=== PATIENT | female | born 1955 | race Caucasian/White ===

== ENCOUNTER → 2017-10-25 | Outpatient (CLI) | payer BC ==
--- NOTE | 2017-10-25 11:56 | MR ---
EXAMINATION TYPE: MR knee LT wo con DATE OF EXAM: 10/25/2017 COMPARISON: Outside radiographs 10/09/2017 HISTORY: 62-year-old female Left knee pain TECHNIQUE: Multiplanar, multisequence imaging of the left knee is performed without IV contrast. FINDINGS: ACL, PCL, MCL, and LCL complex are intact. Some degenerative signal at the junction of the posterior horn and body of the medial meniscus withou t discrete meniscal tear. There is a moderate irregular cartilage loss especially along the weightbe aring aspect of the medial compartment. Mild degenerative subchondral signal changes in the medial ti bial plateau and also along the mid weightbearing aspect of the femoral condyle. There is prominent intrasubstance signal involving the anterior horn of the lateral meniscus near the anterior root. Signal does not clearly extend to either articular surface. Mild diffuse thinning of lateral compartment articular cartilage. Moderate diffuse thinning of patellofemoral compartment articular cartilage with focal irregular cart ilage loss especially along the lateral patellar facet with underlying early subchondral cystic maza e. There is enthesopathic change at the patellar base. Extensor mechanism is intact. Physiological joint fluid. No significant Zhou's cyst. Normal popliteal artery anatomy and muscle bulk. No suspicious bone marrow replacement. IMPRESSION: 1. Degenerative signal involving the anterior horn of the lateral meniscus near the root and addition al degenerative signal at the junction of the posterior horn and body of the medial meniscus. No disc rete meniscal tear at this time. 2. Moderate medial compartmental osteoarthrosis characterized by irregular cartilage thinning especia lly along the weightbearing aspect. 3. Mild patellofemoral compartmental osteoarthrosis. 4. No cruciate/collateral ligament tear.
== END | disposition home or self-care (01) ==
LOC: RADMRIMAIN 07:04
PROVIDERS: ATTEND Orthopaedic Surgery
DX: M17.12 Unilateral primary osteoarthritis, left knee (principal)

== ENCOUNTER → 2017-10-29 | Outpatient (CLI) | payer BC ==
--- NOTE | 2017-10-30 11:47 | MM ---
Reason for exam: screening (asymptomatic). Last mammogram was performed 1 year and 9 months ago. History: Patient is postmenopausal. Benign right mammotome panel of the right breast, March 01, 2007. Benign stereotactic core biopsy of the right breast, September 26, 2002. Took estrogen for 4 years 4 months beginning at age 48. Physical Findings: A clinical breast exam by your physician is recommended on an annual basis and results should be correlated with mammographic findings. MG 3D Screening Mammo W/Cad Bilateral CC and MLO view(s) were taken. Prior study comparison: January 19, 2016, bilateral MG screening mammo w CAD. May 21, 2014, bilateral MG screening mammo w CAD. There are scattered fibroglandular densities. Previous mammotome biopsy in the right breast x 2. No significant changes when compared with prior studies. ASSESSMENT: Negative, BI-RAD 1 RECOMMENDATION: Routine screening mammogram of both breasts in 1 year.
== END | disposition home or self-care (01) ==
LOC: RADMAMWWP 06:56
PROVIDERS: ATTEND Family Medicine
DX: Z12.31 Encounter for screening mammogram for malignant neoplasm of breast (principal)
CPT/HCPCS: 77063; 77067

== ENCOUNTER → 2017-11-19 | Outpatient (CLI) | payer BC ==
[2017-11-19 14:11] LABS: Basophils # (A) 0.1 k/uL (0-0.2); Basophils % (A) 1 %; Eosinophils # (A) 0.1 k/uL (0-0.7); Eosinophils % (A) 2 %; HCT 43.3 % (34.0-46.0); HGB 14.9 gm/dL (11.4-16.0); Lymphocytes # (A) 1.7 k/uL (1.0-4.8); Lymphocytes % (A) 29 %; MCHC 34.4 g/dL (31.0-37.0); MCV 90.1 fL (80.0-100.0); Mean Platelet Volume 6.8; Monocytes # (A) 0.3 k/uL (0-1.0); Monocytes % (A) 6 %; Neutrophils # (A) 3.7 k/uL (1.3-7.7); Neutrophils % (A) 61 %; Platelet Count 308 k/uL (150-450); RBC 4.81 m/uL (3.80-5.40); RDW 12.8 % (11.5-15.5); WBC 6.1 k/uL (3.8-10.6)
[2017-11-19 14:36] LABS: Potassium 4.3 mmol/L (3.5-5.1)
== END | disposition home or self-care (01) ==
LOC: LABPAT 13:14
PROVIDERS: ATTEND Orthopaedic Surgery
DX: Z01.818 Encounter for other preprocedural examination (principal); M23.92 Unspecified internal derangement of left knee; Z01.812 Encounter for preprocedural laboratory examination
CPT/HCPCS: 36415; 80051; 85025; 93005

== ENCOUNTER 2017-11-29 09:02 | Day surgery (SDC) | payer BC ==
[2017-11-26 12:27] VITALS: BMI 29.0
--- NOTE | 2017-11-28 12:44 | HP ---
HISTORY AND PHYSICAL Surgery is 11/29/2017. Robert Delgadillo is a 62-year-old patient seen with progressive left knee pain. We discussed treatment options. The patient elected to proceed with left knee arthroscopy. Consent was obtained. PAST MEDICAL HISTORY: Hypertension. PAST SURGICAL HISTORY: section, hysterectomy, right shoulder arthroscopy, wrist surgery. DAILY MEDICATIONS: Hydrochlorothiazide. ALLERGIES: None reported. SOCIAL HISTORY: Noncontributory/patient denies current tobacco use. PHYSICAL EVALUATION: Physical evaluation of the left knee: Range of motion is 0 to 130 degrees. There is a mild effusion present. Tenderness along the medial joint line. Positive medial Dionicio's. Ligaments stable. Hip rotation without pain. Distal neurovascular exam intact left knee. Left knee radiographs revealed moderate osteoarthritis and MRI of the left knee revealed abnormal signal within medial meniscus as well as chondromalacia changes. IMPRESSION: 1. Internal derangement left knee with meniscal tear versus osteochondral tear. 2. Left knee osteoarthritis. 3. Hypertension. PLAN: Left knee arthroscopy with partial meniscectomy versus chondroplasty and debridement. MMODL / IJN: [id number] /
[~2017-11-29 09:02] MED LIST: DEXAMETHASONE SOD PHOSPHATE 10 MG/ML 1 ML VIAL IV ONE; HYDROmorphone 0.5 MG/0.5 ML SYRINGE IVP PRN; LACTATED RINGERS 1,000 ML IV SCH; MIDAZOLAM 2 MG/2 ML VIAL IV PRN; MORPHINE SULFATE 4 MG/ML SYRINGE IV PRN; ONDANSETRON 4 MG/2 ML VIAL IVP ONE; ceFAZolin IN SWFI 2 GM/20 ML SYRINGE IVP ONE
[2017-11-29 10:21] VITALS: TEMP 97.6
[2017-11-29] MEDS ORDERED: LIDOCAINE 1% 20 ML VIAL (10MG/ML) FOR IV START INTRADERMA ONE (10:27)
[2017-11-29] MEDS ORDERED: KETOROLAC 30 MG/ML 1 ML VIAL ONE (10:59)
[2017-11-29] MEDS ORDERED: MIDAZOLAM 2 MG/2 ML VIAL ONE (10:59)
[2017-11-29] MEDS ORDERED: PROPOFOL 10 MG/ML 20 ML VIAL IV ONE (10:59)
[2017-11-29] MEDS ORDERED: HYDROmorphone (PF) 1 MG/ML ONE (10:59)
[2017-11-29] MEDS ORDERED: fentaNYL (PF) 50 MCG/ML 2 ML AMP ONE (10:59)
[2017-11-29] MEDS ORDERED: ROPIVACAINE 5 MG/ML 30 ML VIAL MISCELLANE ONE (11:24)
--- NOTE | 2017-11-29 12:01 | P.OP ---
Date of Procedure: 11/29/17 Preoperative Diagnosis: Internal derangement left knee Postoperative Diagnosis: 1. Tear medial and lateral meniscus left knee 2. Grade 4 chondromalacia medial femoral condyle left knee 3. Grade 2 chondromalacia patella left knee 4. Reactive synovitis medial and suprapatellar compartments left knee Procedure(s) Performed: 1. Arthroscopic partial medial and lateral meniscectomy left knee 2. Arthroscopic chondroplasty medial femoral condyle left knee 3. Arthroscopic microfracture medial femoral condyle left knee 4. Arthroscopic chondroplasty patella left knee 5. Arthroscopic partial synovectomy medial and suprapatellar compartments left knee Anesthesia: SALVADOR, local Surgeon: Solomon Celaya Estimated Blood Loss (ml): 9 Pathology: none sent Condition: stable Disposition: PACU Indications for Procedure: 62-year-old patient seen with progressive left knee pain. After having treatment options discussed, she elected to proceed with arthroscopy. Operative Findings: See description of procedure Description of Procedure: Patient was taken to the operative suite. Patient underwent a general anesthetic by the department of anesthesia. Patient was given preoperative antibiotics. The left lower extremity was placed in a well-padded arthroscopic leg shah. The left leg was prepped and draped in the normal sterile orthopedic fashion. A lateral parapatellar and suprapatellar incision was made. Trochars were inserted. Arthroscopy was initiated. Suprapatellar pouch revealed diffuse thick reactive synovitis. The patellofemoral joint appeared to articulate congruently. There was grade 2 chondromalacia of the patella with osteochondral tears present. The scope was guided into the medial gutter. No loose bodies or plica was identified The scope was then guided into the medial compartment. A medial parapatellar incision was made. Trocar inserted followed by probe. There was radial tear posterior medial meniscus. There was near were grade 4 chondromalacia medial femoral condyle with exposed bone weightbearing surface. There was reactive synovitis anteriorly. There were grade 2 chondromalacia changes of the tibial plateau with no osteochondral tears. I performed a partial medial meniscectomy down to stable tissue. I performed a chondroplasty of the medial femoral condyle and partial synovectomy. At this point performed a microfracture to medial femoral condyle in the area of exposed bone. The residual area was probed and found to be stable as was the residual meniscus. Scope and probe were then guided into the intercondylar notch. Cruciates were identified, probed and found to be stable. The scope and probe were then guided into lateral compartment. There was a radial tear involving the posterior horn and midbody of the lateral meniscus. There were grade 1 chondromalacia changes lateral compartment with no osteochondral tears. I performed a partial lateral meniscectomy down to stable tissue. The residual meniscus was probed and found to be stable. The scope was in guided back into the suprapatellar compartment. I introduced a motorized shaver into the super patellar compartment. I performed a chondroplasty of the patella down to stable tissue. I debrided some piecemeal fragments of meniscus I encountered. I performed a partial synovectomy. The shaver was removed. I took one more look around the entire knee, no residual debris identified. Instruments were now removed from the joint. The joint was infiltrated with .25% Marcaine. Steri-Strips were applied to the portal sites. Sterile dressings were applied. The patient was placed into a KUNAL hose. No tourniquet was utilized. The patient was awakened, transferred to a bed and taken to recovery stable satisfactory condition.
[2017-11-29 12:19] VITALS: RESP 18
[2017-11-29 13:26] VITALS: BP 138/84; PULSE 70
== END 2017-11-29 13:56 | disposition home or self-care (01) ==
LOC: OR 09:02
PROVIDERS: ATTEND Orthopaedic Surgery
DX: S83.242A Other tear of medial meniscus, current injury, left knee, initial encounter (principal); S83.282A Other tear of lateral meniscus, current injury, left knee, initial encounter; X58.XXXA Exposure to other specified factors, initial encounter; M22.42 Chondromalacia patellae, left knee; M65.862 Other synovitis and tenosynovitis, left lower leg; M17.12 Unilateral primary osteoarthritis, left knee; I10 Essential (primary) hypertension; J45.909 Unspecified asthma, uncomplicated; K21.9 Gastro-esophageal reflux disease without esophagitis; Z79.1 Long term (current) use of non-steroidal anti-inflammatories (NSAID); Z79.899 Other long term (current) drug therapy
CPT/HCPCS: 29880; 29879; J2250; J1100; J2405; J3010; J1885; J1170; J2795; J2704; J0690

== ENCOUNTER → 2018-11-27 | Outpatient (CLI) | payer BC ==
--- NOTE | 2018-11-27 12:14 | BD ---
EXAMINATION TYPE: Axial Bone Density DATE OF EXAM: 11/27/2018 COMPARISON: 05/16/2013 CLINICAL HISTORY: Postmenopausal female. Osteoporosis screening. Height: 64 IN Weight: 190 LBS FRAX RISK QUESTIONS: Secondary Osteoporosis: 3. Menopause before 45: AGE 44 RISK FACTORS HISTORY OF: Family History of Osteoporosis: YES MOTHER Active: YES Postmenopausal woman: AGE 44 Take estrogen and/or progesterone medications: NOT NOW How lon - 2006 MEDICATIONS: Osteoporosis Medications: NOT NOW Which medication: Fosamax How Lon YEARS Additional Medications: CALCIUM, VIT D, HCTZ, PROTONIX, MOBIC, ZERTEC EXAM MEASUREMENTS: Bone mineral densitometry was performed using the [employer] System. Bone mineral density as measured about the Lumbar spine is: ----- L1-L4(G/cm2): 0.944 T Score Values are as follows: ----- L2: -2.0 ----- L3: -2.0 ----- L4: -1.8 ----- L1-L4: -2.0 Bone mineral density has: Increased 3.1% since study of: 05/16/2013 Bone mineral density about the R hip (g/cm2): 0.932 Bone mineral density about the L hip (g/cm2): 0.827 T Score values are as follows: -----R Neck: -0.8 -----L Neck: -1.5 -----R Total: -0.4 -----L Total: -1.3 Bone mineral density has: Decreased -2.0% since study of: 05/16/2013 IMPRESSION: Osteopenia (T Score between -2.5 and -1). There is slightly increased risk of fracture and the patient may be considered for treatment. Re-Screen 2-5 years. NOTE: T-SCORE=SD OF THE YOUNG ADULT MEAN.
--- NOTE | 2018-11-28 11:10 | MM ---
Reason for exam: screening (asymptomatic). Last mammogram was performed 1 year and 1 month ago. History: Patient is postmenopausal. Benign right mammotome panel of the right breast, March 01, 2007. Benign stereotactic core biopsy of the right breast, September 26, 2002. Took estrogen for 4 years 4 months beginning at age 48. Physical Findings: A clinical breast exam by your physician is recommended on an annual basis and results should be correlated with mammographic findings. MG Screening Mammo w CAD Bilateral CC and MLO view(s) were taken. Prior study comparison: October 29, 2017, bilateral MG 3d screening mammo w/cad. January 19, 2016, bilateral MG screening mammo w CAD. The breast tissue is heterogeneously dense. This may lower the sensitivity of mammography. Finding: There are typically benign round, diffuse/scattered and grouped calcifications in both breasts, greater in the right breast. Previous mammotome biopsy in the right breast x 2. There is a chronic nodularity bilaterally. There is no discrete abnormality. ASSESSMENT: Benign, BI-RAD 2 RECOMMENDATION: Routine screening mammogram of both breasts in 1 year.
== END | disposition home or self-care (01) ==
LOC: RADMAMWWP 09:30
PROVIDERS: ATTEND Family Medicine
DX: Z12.31 Encounter for screening mammogram for malignant neoplasm of breast (principal); M85.852 Other specified disorders of bone density and structure, left thigh; M85.88 Other specified disorders of bone density and structure, other site
CPT/HCPCS: 77067; 77080

== ENCOUNTER 2018-12-30 06:45 | Day surgery (SDC) | payer BC ==
[2018-12-27 09:25] VITALS: BMI 30.4
[~2018-12-30 06:45] MED LIST changes: -DEXAMETHASONE SOD PHOSPHATE 10 MG/ML 1 ML VIAL IV ONE; -HYDROmorphone 0.5 MG/0.5 ML SYRINGE IVP PRN; +LIDOCAINE 1% 20 ML VIAL (10MG/ML) FOR IV START INTRADERMA PRN; -MIDAZOLAM 2 MG/2 ML VIAL IV PRN; -MORPHINE SULFATE 4 MG/ML SYRINGE IV PRN; -ONDANSETRON 4 MG/2 ML VIAL IVP ONE; -ceFAZolin IN SWFI 2 GM/20 ML SYRINGE IVP ONE
[2018-12-30 07:17] VITALS: RESP 18; TEMP 96.3
[2018-12-30] MEDS ORDERED: ONDANSETRON 4 MG/2 ML VIAL IVP STA (07:28)
[2018-12-30] MEDS ORDERED: PROPOFOL 10 MG/ML 20 ML VIAL IV ONE (07:33)
[2018-12-30] MEDS ORDERED: ONDANSETRON 4 MG/2 ML VIAL IVP ONE (07:33)
[2018-12-30] MEDS ORDERED: MIDAZOLAM 2 MG/2 ML VIAL ONE (07:33)
[2018-12-30] MEDS ORDERED: fentaNYL (PF) 50 MCG/ML 2 ML AMP ONE (07:33)
--- NOTE | 2018-12-30 08:41 | P.PCN ---
Date of Procedure: 12/30/18 Description of Procedure: Brief history: Patient is a pleasant scheduled for an elective upper endoscopy as well as colonoscopy as a part of evaluation of GERD, esophageal dysphagia and screening for malignant neoplasm of the colon. She reports a long-standing history of GERD and is currently on Protonix twice daily. She continues to have intermittent symptoms even on the medication. In addition she will have intermittent solid food dysphagia. She reports last colonoscopy was 7 years ago and significant for polyps. No family history of colon cancer. No change in bowel habits or blood per rectum. Procedure performed: Esophagogastroduodenoscopy Colonoscopy Estimated blood loss: Minimal. Preoperative diagnosis: Anesthesia: MAC Procedure: After informed consent was obtained from the patient was brought into the endoscopy unit and IV sedation was administered by anesthesia under continuous monitoring. Initially upper endoscopy was done. The Olympus GF 190 video endoscope was inserted inserted into the mouth and esophagus intubated without any difficulty and was gradually advanced into the stomach and duodenum and carefully examined. The bulb and second part of the duodenum appeared normal, with biopsies taken. The scope was then withdrawn into the stomach adequately insufflated with air and upon careful examination the antrum and body, cardia and fundus appeared normal, except for some mild scattered erythema in the antrum and body suggestive of mild gastritis with biopsies taken. In addition a few diminutive polyps suggestive of fundic gland polyps were noted with 3 polyps removed with cold forceps. The scope was then withdrawn into the esophagus. The GE junction was located at 38 cm to the incisors, biopsied. Small hiatal hernia noted. It appeared regular with no erythema erosions or ulcerations, with mid esophageal biopsies to rule out EOE. Rest of the esophagus appeared normal. Patient tolerated the procedure well. At this time the patient continued to remain sedation. Initial digital rectal examination was normal. Olympus CF 190 video colonoscope was then inserted into the rectum and gradually advanced to the cecum without any difficulty. Retroflexion in the cecum with no polyps or masses noted. Careful examination was performed as the scope was gradually being withdrawn. The prep was excellent. The cecum, ascending colon, transverse colon, descending colon, sigmoid colon and rectum appeared grossly normal with some mild scattered sigmoid diverticulosis. 3 diminutive sessile ascending colon polyps measuring 2-3 mm removed with cold snare polypectomy. Small area of abnormal-appearing tissue on the IC valve measuring 3 mm removed with cold snare to rule out polyp. Diminutive sessile descending colon polyp measuring 4 mm removed with cold snare polypectomy. Diminutive 2 mm sessile sigmoid polyp removed with cold fo rcep polypectomy. 2 diminutive 2 mm sessile rectal polyps removed with cold forcep polypectomy. Mild internal hemorrhoids. Retroflexion was performed in the rectum and no lesions were noted. Patient tolerated the procedure well. Impression: 1. Mild gastritis antrum and body, biopsied. Gastric polyps, biopsied. Small hiatal hernia. Biopsies of the duodenum, GE junction, and midesophagus. 2. 7 diminutive sessile polyps measuring from 2-4 mm removed from the ascending colon, descending colon, sigmoid colon and rectum (see note for details), biopsy IC valve, mild sigmoid diverticulosis, mild internal hemorrhoids. Recommendations: Findings of this examination were discussed with the patient as well as her daughter. Okay to resume high-fiber diet. Continue Protonix twice daily. Aw ait pathology from biopsies. Anticipate repeat colonoscopy in 3 years pending pathology from biopsies.
[2018-12-30 08:49] VITALS: BP 131/79; PULSE 76
== END 2018-12-30 09:30 | disposition home or self-care (01) ==
LOC: ORWHC2ENDO 06:45
PROVIDERS: ATTEND Internal Medicine
DX: K21.0 Gastro-esophageal reflux disease with esophagitis (principal); Z12.11 Encounter for screening for malignant neoplasm of colon; D12.2 Benign neoplasm of ascending colon; D12.4 Benign neoplasm of descending colon; D12.5 Benign neoplasm of sigmoid colon; D12.8 Benign neoplasm of rectum; K29.50 Unspecified chronic gastritis without bleeding; K44.9 Diaphragmatic hernia without obstruction or gangrene; K57.30 Diverticulosis of large intestine without perforation or abscess without bleeding; K64.8 Other hemorrhoids; Z79.1 Long term (current) use of non-steroidal anti-inflammatories (NSAID); Z79.899 Other long term (current) drug therapy
CPT/HCPCS: 88305; 45380; 45385; 43239; J2250; J2405; J3010; J2704

== ENCOUNTER → 2019-08-06 | Outpatient (CLI) | payer BC ==
--- NOTE | 2019-08-07 03:49 | US ---
EXAMINATION TYPE: US st tissue neck DATE OF EXAM: 08/06/2019 COMPARISON: NONE CLINICAL HISTORY: 63-year-old female R22.1 Swelling Mass Lump. TECHNIQUE: Targeted sonographic examination along the left side of the neck/submandibular region at t he patient's palpable site. FINDINGS: Inspector Wreath notes: Patient states feeling a lump on left neck/ submandibular. Area of concern scanned. Submandibular gland visualized. Adjacent lymph node visualized measuring 1. 6 x 1.2 x 0.4 cm. Contralateral images taken. IMPRESSION: A mildly enlarged left submandibular space lymph node at the palpable site measuring 1.2 cm. This may be reactive/post inflammatory. If any growth is noted, the area can be reimaged.
== END | disposition home or self-care (01) ==
LOC: RADUSWWP 15:37
PROVIDERS: ATTEND Family Medicine
DX: R59.0 Localized enlarged lymph nodes (principal)
CPT/HCPCS: 76536

== ENCOUNTER → 2020-03-19 | Outpatient (CLI) | payer BC ==
--- NOTE | 2020-03-20 08:28 | US ---
EXAMINATION TYPE: US thyroid st tissue head/neck DATE OF EXAM: 03/19/2020 COMPARISON: US 08/06/2019 CLINICAL HISTORY: R22.1 Localized swelling, mass and lump, neck. At the patient's palpable, left neck, there is a probable lymph node visualized measuring 2.2 x 0.5 x 0.8 cm Lymph node shows a fatty hilus, no abnormal enlargement. IMPRESSION: Limited ultrasound performed. Benign-appearing lymph node identified at the site of valentino ent's palpable abnormality.
== END | disposition home or self-care (01) ==
LOC: RADUSWWP 16:38
PROVIDERS: ATTEND Family Medicine
DX: D36.0 Benign neoplasm of lymph nodes (principal)
CPT/HCPCS: 76536

== ENCOUNTER → 2020-05-20 | Outpatient (CLI) | payer BC ==
--- NOTE | 2020-05-21 14:58 | MM ---
Reason for exam: screening (asymptomatic). Last mammogram was performed 1 year and 6 months ago. History: Patient is postmenopausal. Benign right mammotome panel of the right breast, March 01, 2007. Benign stereotactic core biopsy of the right breast, September 26, 2002. Took estrogen for 4 years 4 months beginning at age 48. Physical Findings: A clinical breast exam by your physician is recommended on an annual basis and results should be correlated with mammographic findings. MG 3D Screening Mammo W/Cad Bilateral CC and MLO view(s) were taken. Prior study comparison: November 27, 2018, bilateral MG screening mammo w CAD. October 29, 2017, bilateral MG 3d screening mammo w/cad. There are scattered fibroglandular densities. Finding: There are stable, fine, grouped/clustered calcifications in the right breast. Previous mammotome biopsy in the right breast x 2. No significant changes in finding since November 27, 2018 and October 29, 2017. ASSESSMENT: Benign, BI-RAD 2 RECOMMENDATION: Routine screening mammogram of both breasts in 1 year.
== END | disposition home or self-care (01) ==
LOC: RADMAMWWP 16:14
PROVIDERS: ATTEND Family Medicine
DX: Z12.31 Encounter for screening mammogram for malignant neoplasm of breast (principal)
CPT/HCPCS: 77063; 77067

== ENCOUNTER → 2020-09-16 | Outpatient (CLI) | payer BC | END | disposition home or self-care (01) | LOC: LABWHC1 11:41 | PROVIDERS: ATTEND Family Medicine | DX: Z20.822 Contact with and (suspected) exposure to COVID-19 (principal) ==

== ENCOUNTER → 2021-06-09 | Outpatient (CLI) | payer BC ==
--- NOTE | 2021-06-10 06:18 | CT ---
EXAMINATION TYPE: CT soft tissue neck w con DATE OF EXAM: 06/09/2021 HISTORY: LT neck mass, marked by BB. COMPARISON: Thyroid ultrasound March 19, 2020 CT DLP: 305.70 mGycm. Automated Exposure Control for Dose Reduction was Utilized. TECHNIQUE: CT scan of the neck is performed with IV Contrast, patient injected with 100 mL of Isovue 300, axial images are obtained, coronal and sagittal reformatted images are reviewed. FINDINGS: Airway: A few small subcentimeter thyroid nodules bilaterally. Parotid/submandibular glands: Metallic BB is in close proximity to the anterior inferior left submand ibular gland axial image 51. Submandibular glands are symmetric and unremarkable. There is no concern ing solid or cystic mass or abnormal fluid collection at this level identified. Normal draining vein or vessel is noted. Carotid/Vascular Structures: [id number] peripheral calcified plaque bilateral carotid bulbs wit hout significant stenosis. Dominant left vertebral artery filling the basilar artery Osseous Structures: Loss of normal cervical curvature. Grade 1 retrolisthesis C5 on C6 with mild-to-m oderate disc space narrowing. Grade 1 anterolisthesis C3 on C4. Other: Nasal septum deviated to right of midline. No suspicious greater than 1 cm neck adenopathy. Mu ltiple cavitary fillings and crowns causes streak artifact limiting evaluation at level of mouth. IMPRESSION: No suspicious mass or adenopathy.
== END | disposition home or self-care (01) ==
LOC: RADCTMAIN 16:28
PROVIDERS: ATTEND Otolaryngology
DX: R22.1 Localized swelling, mass and lump, neck (principal)
CPT/HCPCS: 70491; Q9967

== ENCOUNTER → 2021-07-06 | Outpatient (CLI) | payer BC ==
--- NOTE | 2021-07-06 12:32 | BD ---
EXAMINATION TYPE: Axial Bone Density DATE OF EXAM: 07/06/2021 COMPARISON: 11.27.2018 CLINICAL HISTORY: 65 YR OLD FEMALE....ICD-10 CODE: Z78.0 MENOPAUSAL Height: 63.8 Weight: 145 FRAX RISK QUESTIONS: Family History (Parent hip fracture): YES, NO FX Glucocorticoids (More than 3mos): ON AND OFF FOR MANY YRS (Ex: prednisone, prednisolone, methylprednisolone, dexamethasone, and hydrocortisone). History of Fracture in Adulthood: YES, MINOR Secondary Osteoporosis: YES 3. Menopause before 45: YES RISK FACTORS HISTORY OF: HX OF BROKEN FINGERS AN ADULT Family History of Osteoporosis: YES, MOTHER NO FX Postmenopausal woman: YES, TOTAL HYST BY 46 YRS OLD Take estrogen and/or progesterone medications: YES, FOR ABOUT 3 YRS, NOTHING NOW Hyperparathyroidism: NO Adrenal Insufficiency: NO MEDICATIONS: Prednisone or other steroids: YES, IN THE PAST FOR ILLNESSES AND PREDNISONE FOR INJURIES AND PAIN How Long: ON AND OFF FOR MANY YRS Osteoporosis Medications: FOSAMAX IN THE PAST FOR ABOUT 5 YRS, NOTHING NOW Additional Medications: DIURETIC, REFLUX MEDS, VIT D AND CALCIUM Additional History: SLIGHT HYPERTENSION, REFLUX, EXAM MEASUREMENTS: Bone mineral densitometry was performed using the [employer] System. Bone mineral density as measured about the Lumbar spine is: ----- L1-L4(G/cm2): 0.850 T Score Values are as follows: ----- L1: -2.3 ----- L2: -2.9 ----- L3: -3.0 ----- L4: -3.0 ----- L1-L4: -2.7 Bone mineral density has: Decreased -12.9% since study of: 11.27.2018 Bone mineral density about the R hip (g/cm2): 0.923 Bone mineral density about the L hip (g/cm2): 0.818 T Score values are as follows: -----R Neck: -1.3 -----L Neck: -1.4 -----R Total: -0.7 -----L Total: -1.5 Bone mineral density has: Decreased -3.3% since study of: 11.27.2018 FRAX%s: THERE IS A 14.4% CHANCE FOR A MAJOR OSTEOPOROTIC FX AND A 1.4% FOR HIP.....PROBABILITY FOR FX IN 10 YRS TIME IMPRESSION: Osteoporosis (T Score less than -2.5). There is increased fracture risk and therapy is usually indicated based on age. Re-Screen 1-2 years. NOTE: T-SCORE=SD OF THE YOUNG ADULT MEAN.
--- NOTE | 2021-07-07 09:36 | MM ---
Reason for exam: screening (asymptomatic). Last mammogram was performed 1 year and 2 months ago. History: Patient is postmenopausal. Benign right mammotome panel of the right breast, March 01, 2007. Benign stereotactic core biopsy of the right breast, September 26, 2002. Took estrogen for 4 years 4 months beginning at age 48. Physical Findings: A clinical breast exam by your physician is recommended on an annual basis and results should be correlated with mammographic findings. MG 3D Screening Mammo W/Cad Bilateral CC and MLO view(s) were taken. Prior study comparison: May 20, 2020, bilateral MG 3d screening mammo w/cad. November 27, 2018, bilateral MG screening mammo w CAD. Finding: There are stable, fine, grouped/clustered calcifications in the 6 o'clock middle position of the right breast. Previous mammotome biopsy in the right breast. No significant changes in finding since May 20, 2020 and November 27, 2018. ASSESSMENT: Benign, BI-RAD 2 RECOMMENDATION: Routine screening mammogram of both breasts in 1 year.
== END | disposition home or self-care (01) ==
LOC: RADMAMWWP 06:57
PROVIDERS: ATTEND Family Medicine
DX: Z12.31 Encounter for screening mammogram for malignant neoplasm of breast (principal); Z78.0 Asymptomatic menopausal state; M81.0 Age-related osteoporosis without current pathological fracture; M85.89 Other specified disorders of bone density and structure, multiple sites
CPT/HCPCS: 77063; 77067; 77080

== ENCOUNTER → 2022-01-10 | Outpatient (CLI) | payer BC ==
[~2022-01-10] MED LIST changes: -LACTATED RINGERS 1,000 ML IV SCH; -LIDOCAINE 1% 20 ML VIAL (10MG/ML) FOR IV START INTRADERMA PRN; +SODIUM CHLORIDE 0.9% 500 ML 500 ML in EMPTY BAG 1 BAG IV PRN; +ZOLEDRONIC ACID 5 MG in SODIUM CHLORIDE 0.9% 100 ML IV NR
[2022-01-10 07:43] VITALS: BP 162/80; PULSE 70; RESP 16; TEMP 98.1
== END ==
LOC: PROCWHC3 07:21
PROVIDERS: ATTEND Family Medicine
DX: M81.0 Age-related osteoporosis without current pathological fracture (principal); Z87.891 Personal history of nicotine dependence
CPT/HCPCS: 96365; J3489

== ENCOUNTER 2022-04-21 11:34 | Day surgery (SDC) | payer BC ==
[2022-04-18 15:23] VITALS: BMI 25.0
[~2022-04-21 11:34] MED LIST changes: +LACTATED RINGERS 1,000 ML IV SCH; +LIDOCAINE 1% (10MG/ML) FOR IV START INTRADERMA PRN; +ONDANSETRON 4 MG/2 ML VIAL IVP PRN; -SODIUM CHLORIDE 0.9% 500 ML 500 ML in EMPTY BAG 1 BAG IV PRN; -ZOLEDRONIC ACID 5 MG in SODIUM CHLORIDE 0.9% 100 ML IV NR
[2022-04-21 12:34] VITALS: RESP 16; TEMP 98
[2022-04-21] MEDS ORDERED: LACTATED RINGERS 1,000 ML IV ONE (12:40)
[2022-04-21] MEDS ORDERED: PROPOFOL 10 MG/ML 20 ML VIAL IV ONE (13:35)
[2022-04-21] MEDS ORDERED: LIDOCAINE 2% INJ 20 MG/ML (2 ML VIAL) ONE (13:35)
--- NOTE | 2022-04-21 13:57 | P.PCN ---
Date of Procedure: 04/21/22 Procedure(s) Performed: Brief history: Patient is a pleasant 66-year-old white female scheduled for an elective upper endoscopy as well as colonoscopy as a part of evaluation of GERD and rectal bleeding. Procedure performed: Esophagogastroduodenoscopy with biopsy Colonoscopy with biopsy Preoperative diagnosis: GERD Rectal bleeding [place] [facility] [place]: After informed consent was obtained from the patient was brought into the endoscopy unit and IV sedation was administered by anesthesia under continuous monitoring. Initially upper endoscopy was done. The Olympus GF 160 video endoscope was inserted inserted into the mouth and esophagus intubated without any difficulty and was gradually advanced into the stomach and duodenum and carefully examined. The bulb and second part of the duodenum appeared normal. The scope was then withdrawn into the stomach adequately insufflated with air a nd upon careful examination the antrum and body, cardia and fundus appeared normal. Multiple small gastric polyps noted which were biopsied. The scope was then withdrawn into the esophagus. The GE junction was located at 40 cm to the incisors. It appeared regular with no erythema erosions or ulcerations. Rest of the esophagus appeared normal. Patient tolerated the procedure well. At this time the patient continued to remain sedation. Initial digital rectal examination was normal. Olympus CF 160 video colonoscope was then inserted into the rectum and gradually advanced to the cecum without any difficulty. Careful examination was performed as the scope was gradually being withdrawn. The prep was excellent. The cecum, ascending colon, transverse colon, descending colon, appeared normal. There were scattered sigmoid diverticulosis seen. There was mild patchy areas of erythema noted in the sigmoid: Any from 25-30 cm from the anal verge consistent sigmoid diverticular related colitis and biopsies were done from this area. Rest of the sigmoid colon and rectum appeared normal. Retroflexion was performed in the rectum and no lesions were noted. Patient tolerated the procedure well. Impression: 1. Upper endoscopy revealed small gastric polyps but no evidence of esophagitis or Cabrera's esophagus 2. Colonoscopy revealed scattered sigmoid diverticulosis and mild area of sigmoid colitis possibly diverticular related colitis status post biopsies Recommendations: Findings of this examination were discussed with the patient as well as her family. She was advised to follow with the biopsy results. She will continue with him Protonix 40 mg daily and follow antireflux measures. Recommend repeat colonoscopy in 10 years.
[2022-04-21 14:27] VITALS: BP 154/85; PULSE 81
== END 2022-04-21 14:55 | disposition home or self-care (01) ==
LOC: ORWHC2ENDO 11:34
PROVIDERS: ATTEND Internal Medicine Gastroenterology
DX: K31.7 Polyp of stomach and duodenum (principal); K57.30 Diverticulosis of large intestine without perforation or abscess without bleeding; K21.9 Gastro-esophageal reflux disease without esophagitis; I10 Essential (primary) hypertension; F17.200 Nicotine dependence, unspecified, uncomplicated; M19.90 Unspecified osteoarthritis, unspecified site; Z79.899 Other long term (current) drug therapy; Z98.890 Other specified postprocedural states; Z90.710 Acquired absence of both cervix and uterus
CPT/HCPCS: 45380; 43239; J2704; J2001; 88305

== ENCOUNTER 2022-05-20 11:23 | Emergency (ER) | payer BC ==
[2022-05-20] MEDS ORDERED: SODIUM CHLORIDE 0.9% 1,000 ML IV STA (12:15)
[2022-05-20] MEDS ORDERED: MECLIZINE 12.5 MG TAB PO STA (12:15)
[2022-05-20] MEDS ORDERED: ONDANSETRON 4 MG/2 ML VIAL IVP STA (12:15)
--- NOTE | 2022-05-20 12:17 | ED ---
General Adult HPI - General Chief complaint: Dizziness Stated complaint: dizziness Time Seen by Provider: 05/20/22 11:53 Source: patient, RN notes reviewed Mode of arrival: wheelchair Limitations: no limitations - History of Present Illness Initial comments: 66-year-old female presents emergency Department chief complaint of dizziness. Patient states she Quickly this morning to go the bathroom notes that she was dizzy. Patient states she does state that she just moved to quickly went back to sleep and woke up with continuation of symptoms. Patient states she has no symptoms at rest only with movement. States room spins. Denies any significant headache, chest pain, focal weakness, vomiting. Patient states she recently had an upper extremity infection was treated with azithromycin. Patient takes Protonix on all her medications denies any significant past medical history otherwise. - Related Data Home Medications Medication Instructions Recorded Confirmed Hydrochlorothiazide 25 mg PO DAILY 10/29/15 04/21/22 Pantoprazole Sodium [Protonix] 40 mg PO DAILY 12/27/18 04/21/22 Meloxicam [Mobic] 7.5 mg PO DAILY 04/18/22 04/21/22 Multivitamins, Thera [Multivitamin 1 tab PO DAILY 04/18/22 04/21/22 (formulary)] Previous Rx's Medication Instructions Recorded Meclizine [Antivert] 25 mg PO TID PRN #15 tab 05/20/22 Allergies Allergy/AdvReac Type Severity Reaction Status Date / Time No Known Allergies Allergy Verified 05/20/22 11:47 Review of Systems ROS Statement: Those systems with pertinent positive or pertinent negative responses have been documented in the HPI. ROS Other: All systems not noted in ROS Statement are negative. Past Medical History Past Medical History: GERD/Reflux, Hypertension, Osteoarthritis (OA) Additional Past Medical History / Comment(s): Blood in stool, IBS, hx ulcers, hiatal hernia. History of Any Multi-Drug Resistant Organisms: None Reported Past Surgical History: Section, Hysterectomy, Orthopedic Surgery Additional Past Surgical History / Comment(s): BILATERAL SHOULDER ROTATOR CUFF REPAIR, GANGLION CYST REMOVED FROM RIGHT WRIST, D&C, OOPHERECTOMY, TUMOR REMOVED FROM OVARY, left knee arthroscopy. Past Anesthesia/Blood Transfusion Reactions: Motion Sickness, Postoperative Nausea & Vomiting (PONV) Past Psychological History: No Psychological Hx Reported Smoking Status: Former smoker Past Alcohol Use History: Rare Past Drug Use History: None Reported - Past Family History Brother(s) Family Medical History: Cancer Additional Family Medical History / Comment(s): 2 Brothers had cancer. General Exam Limitations: no limitations General appearance: alert, in no apparent distress Head exam: Present: atraumatic, normocephalic, normal inspection Eye exam: Present: normal appearance, PERRL, EOMI. Absent: scleral icterus, conjunctival injection, periorbital swelling ENT exam: Present: normal exam, normal oropharynx, mucous membranes moist Neck exam: Present: normal inspection, full ROM. Absent: tenderness, meningismus, lymphadenopathy Respiratory exam: Present: normal lung sounds bilaterally. Absent: respiratory distress, wheezes, rales, rhonchi, stridor Cardiovascular Exam: Present: regular rate, normal rhythm, normal heart sounds. Absent: systolic murmur, diastolic murmur, rubs, gallop, clicks GI/Abdominal exam: Present: soft, normal bowel sounds. Absent: distended, tenderness, guarding, rebound, rigid Extremities exam: Present: normal inspection, full ROM, normal capillary refill. Absent: tenderness, pedal edema, joint swelling, calf tenderness Neurological exam: Present: alert, oriented X3, CN II-XII intact, reflexes normal. Absent: motor sensory deficit Skin exam: Present: warm, dry, intact, normal color. Absent: rash Course Vital Signs 05/20/22 11:47 Temperature 98.2 F Pulse Rate 86 Respiratory 16 Rate Blood Pressure 162/91 O2 Sat by Pulse 96 Oximetry Medical Decision Making - Medical Decision Making 66-year-old female presented for dizziness. Patient did have for concluding labs, EKG with no specific findings. Patient feels greatly improved after fluid bolus, Antivert. Patient was able to ambulate with no recurrent dizziness. Patient we discharged in stable condition we discussed return parameters and symptoms of vertigo. - Lab Data Result diagrams: 05/20/22 12:25 05/20/22 12:25 Lab Results 05/20/22 05/20/22 05/20/22 Range/Units 12:25 12:25 12:25 WBC 5.1 (3.8-10.6) k/uL RBC 4.84 (3.80-5.40) m/uL Hgb 15.0 (11.4-16.0) gm/dL Hct 42.8 (34.0-46.0) % MCV 88.4 (80.0-100.0) fL MCH 31.1 (25.0-35.0) pg MCHC 35.1 (31.0-37.0) g/dL RDW 12.2 (11.5-15.5) % Plt Count 261 (150-450) k/uL MPV 8.2 Neutrophils % 70 % Lymphocytes % 22 % Monocytes % 5 % Eosinophils % 1 % Basophils % 1 % Neutrophils # 3.6 (1.3-7.7) k/uL Lymphocytes # 1.1 (1.0-4.8) k/uL Monocytes # 0.3 (0-1.0) k/uL Eosinophils # 0.1 (0-0.7) k/uL Basophils # 0.0 (0-0.2) k/uL Sodium 138 (137-145) mmol/L Potassium 3.6 (3.5-5.1) mmol/L Chloride 102 (98-107) mmol/L Carbon Dioxide 29 (22-30) mmol/L Anion Gap 7 mmol/L BUN 21 H (7-17) mg/dL Creatinine 0.54 (0.52-1.04) mg/dL Est GFR (CKD-EPI)AfAm >90 (>60 ml/min/1.73 sqM) Est GFR (CKD-EPI)NonAf >90 (>60 ml/min/1.73 sqM) Glucose 103 H (74-99) mg/dL Calcium 8.9 (8.4-10.2) mg/dL Total Bilirubin 0.8 (0.2-1.3) mg/dL AST 27 (14-36) U/L ALT 23 (4-34) U/L Alkaline Phosphatase 68 (38-126) U/L Troponin I <0.012 (0.000-0.034) ng/mL Total Protein 7.3 (6.3-8.2) g/dL Albumin 4.2 (3.5-5.0) g/dL Urine Color Urine Appearance (Clear) Urine pH (5.0-8.0) Ur Specific Mineral (1.001-1.035) Urine Protein (Negative) Urine Glucose (UA) (Negative) Urine Ketones (Negative) Urine Blood (Negative) Urine Nitrite (Negative) Urine Bilirubin (Negative) Urine Urobilinogen (<2.0) mg/dL Ur Leukocyte Esterase (Negative) 05/20/22 Range/Units 13:35 WBC (3.8-10.6) k/uL RBC (3.80-5.40) m/uL Hgb (11.4-16.0) gm/dL Hct (34.0-46.0) % MCV (80.0-100.0) fL MCH (25.0-35.0) pg MCHC (31.0-37.0) g/dL RDW (11.5-15.5) % Plt Count (150-450) k/uL MPV Neutrophils % % Lymphocytes % % Monocytes % % Eosinophils % % Basophils % % Neutrophils # (1.3-7.7) k/uL Lymphocytes # (1.0-4.8) k/uL Monocytes # (0-1.0) k/uL Eosinophils # (0-0.7) k/uL Basophils # (0-0.2) k/uL Sodium (137-145) mmol/L Potassium (3.5-5.1) mmol/L Chloride (98-107) mmol/L Carbon Dioxide (22-30) mmol/L Anion Gap mmol/L BUN (7-17) mg/dL Creatinine (0.52-1.04) mg/dL Est GFR (CKD-EPI)AfAm (>60 ml/min/1.73 sqM) Est GFR (CKD-EPI)NonAf (>60 ml/min/1.73 sqM) Glucose (74-99) mg/dL Calcium (8.4-10.2) mg/dL Total Bilirubin (0.2-1.3) mg/dL AST (14-36) U/L ALT (4-34) U/L Alkaline Phosphatase (38-126) U/L Troponin I (0.000-0.034) ng/mL Total Protein (6.3-8.2) g/dL Albumin (3.5-5.0) g/dL Urine Color Light Yellow Urine Appearance Clear (Clear) Urine pH 7.0 (5.0-8.0) Ur Specific Mineral 1.007 (1.001-1.035) Urine Protein Negative (Negative) Urine Glucose (UA) Negative (Negative) Urine Ketones Negative (Negative) Urine Blood Negative (Negative) Urine Nitrite Negative (Negative) Urine Bilirubin Negative (Negative) Urine Urobilinogen <2.0 (<2.0) mg/dL Ur Leukocyte Esterase Negative (Negative) Disposition Clinical Impression: Vertigo Disposition: HOME SELF-CARE Condition: Stable Instructions (If sedation given, give patient instructions): Vertigo (ED) Additional Instructions: Please return to the Emergency Department if symptoms worsen or any other concerns. Prescriptions: Meclizine [Antivert] 25 mg PO TID PRN #15 tab PRN Reason: Vertigo Is patient prescribed a controlled substance at d/c from ED?: No Referrals: Mei Fagan MD [Primary Care Provider] - 1-2 days Time of Disposition: 14:04
[2022-05-20 12:57] LABS: Basophils % (A) 1 %; Eosinophils # (A) 0.1 k/uL (0-0.7); Eosinophils % (A) 1 %; HCT 42.8 % (34.0-46.0); Lymphocytes # (A) 1.1 k/uL (1.0-4.8); Lymphocytes % (A) 22 %; MCH 31.1 pg (25.0-35.0); MCHC 35.1 g/dL (31.0-37.0); MCV 88.4 fL (80.0-100.0); Mean Platelet Volume 8.2; Monocytes # (A) 0.3 k/uL (0-1.0); Monocytes % (A) 5 %; Neutrophils # (A) 3.6 k/uL (1.3-7.7); Neutrophils % (A) 70 %; Platelet Count 261 k/uL (150-450); RBC 4.84 m/uL (3.80-5.40); RDW 12.2 % (11.5-15.5); WBC 5.1 k/uL (3.8-10.6)
[2022-05-20 12:59] LABS: ALT 23 U/L (4-34); AST 27 U/L (14-36); African American GFR (CKD) >90 (>60 ml/min/1.73 sqM); Albumin 4.2 g/dL (3.5-5.0); Alkaline Phosphatase 68 U/L (38-126); Anion Gap 7 mmol/L; Blood Urea Nitrogen 21 mg/dL (7-17); Calcium 8.9 mg/dL (8.4-10.2); Carbon Dioxide 29 mmol/L (22-30); Chloride 102 mmol/L (98-107); Glucose 103 mg/dL (74-99); Non-African American GFR(CKD) >90 (>60 ml/min/1.73 sqM); Potassium 3.6 mmol/L (3.5-5.1); Sodium 138 mmol/L (137-145); Total Bilirubin 0.8 mg/dL (0.2-1.3); Total Protein 7.3 g/dL (6.3-8.2)
[2022-05-20 13:56] LABS: Appearance,Urine Clear (Clear); Bilirubin,Urine Negative (Negative); Blood,Urine Negative (Negative); Color,Urine Light Yellow; Glucose,Urine (UA) Negative (Negative); Ketones,Urine Negative (Negative); Leukocyte Esterase,Urine Negative (Negative); Nitrite,Urine Negative (Negative); Protein,Urine Negative (Negative); Specific Gravity,Urine 1.007 (1.001-1.035); Urobilinogen,Urine <2.0 mg/dL (<2.0)
[2022-05-20 14:31] VITALS: BP 139/84; PULSE 71; RESP 18; TEMP 98.4
== END 2022-05-20 14:31 | disposition home or self-care (01) ==
LOC: EC 11:23
DX: R42 Dizziness and giddiness (principal); I10 Essential (primary) hypertension; K21.9 Gastro-esophageal reflux disease without esophagitis; M19.90 Unspecified osteoarthritis, unspecified site; F17.290 Nicotine dependence, other tobacco product, uncomplicated; Z79.899 Other long term (current) drug therapy; Z79.84 Long term (current) use of oral hypoglycemic drugs; Z79.1 Long term (current) use of non-steroidal anti-inflammatories (NSAID)
CPT/HCPCS: 36415; 93005; 80053; 84484; 85025; 81003; 99284; 96374; 96361; J2405

== ENCOUNTER → 2023-05-25 | Outpatient (CLI) | payer BC ==
[~2023-05-25] MED LIST changes: -LACTATED RINGERS 1,000 ML IV SCH; -LIDOCAINE 1% (10MG/ML) FOR IV START INTRADERMA PRN; -ONDANSETRON 4 MG/2 ML VIAL IVP PRN; +SODIUM CHLORIDE 0.9% 500 ML 500 ML in EMPTY BAG 1 BAG IV PRN; +ZOLEDRONIC ACID 5 MG in SODIUM CHLORIDE 0.9% 100 ML IV NR
[2023-05-25 13:04] VITALS: BP 142/86; PULSE 71; RESP 16; TEMP 97.7
== END ==
LOC: PROCWHC3 12:25
PROVIDERS: ATTEND Family Medicine
DX: M81.0 Age-related osteoporosis without current pathological fracture (principal)
CPT/HCPCS: 96365; J3489

== ENCOUNTER → 2023-10-29 | Outpatient (CLI) | payer BC ==
--- NOTE | 2023-10-29 18:29 | BD ---
EXAMINATION TYPE: Axial Bone Density DATE OF EXAM: 10/29/2023 CLINICAL HISTORY: 68 years old Female. ICD-10 CODE: Z78.0 MENOPAUSAL STATE Height: 63.7in Weight: 181lb FRAX RISK QUESTIONS: History of Fracture in Adulthood: yes Secondary Osteoporosis: 3. Menopause before 45: yes RISK FACTORS HISTORY OF: MEDICATIONS: Osteoporosis Medications: Which medication: Reclast infusion How Lon treatments EXAM MEASUREMENTS: Bone mineral densitometry was performed using the Chorus System. Bone mineral density as measured about the Lumbar spine is: ----- L1-L4(G/cm2): 0.988 T Score Values are as follows: ----- L1: -1.6 ----- L2: -2.0 ----- L3: -1.5 ----- L4: -1.5 ----- L1-L4: -1.6 Z Score Values are as follows: ----- L1: -0.5 ----- L2: -1.0 ----- L3: -0.4 ----- L4: -0.5 ----- L1-L4: -0.6 Bone mineral density has: Increased 16.2% since study of: 07-06-21 Bone mineral density about the R hip (g/cm2): 0.927 Bone mineral density about the L hip (g/cm2): 0.835 T Score values are as follows: -----R Neck: -1.2 -----L Neck: -1.5 -----R Total: -0.6 -----L Total: -1.4 Z Score values are as follows: -----R Neck: -0.1 -----L Neck: -0.4 -----R Total: 0.2 -----L Total: -0.5 Bone mineral density has: Increased 1.3% since study of: 07-06-21 FRAX%s: The graph provided illustrates a 14.6% chance for a major osteoporotic fx and a 1.6% chance f or the hips probability for fx in 10 years time. IMPRESSION: Osteopenia (T Score between -2.5 and -1). There is slightly increased risk of fracture and the patient may be considered for treatment. Re-Screen 2-5 years. NOTE: T-SCORE=SD OF THE YOUNG ADULT MEAN.
--- NOTE | 2023-10-30 20:07 | MM ---
Reason for Exam: Screening (asymptomatic). Last mammogram was performed 1 year(s) and 3 month(s) ago. Patient History: Menarche at age 16. First Full-Term at age 19. Left ovary removed at age 48. Right ovary removed at age 48. Hysterectomy at age 35. Postmenopausal. Patient has history of breast feeding. Estrogen for 4 years, 4 months, from age 48 until age 52. 03/01/2007, Benign Core Biopsy on the right side. 09/26/2002, Benign Stereotactic Core Biopsy on the right side. Risk Values: Lorene 5 year model risk: 1.7%. NCI Lifetime model risk: 6.0%. Prior Study Comparison: 05/20/2020 Bilateral Screening Mammogram, [facility]. 07/06/2021 Bilateral Screening Mammogram, [facility]. 07/26/2022 Bilateral MG 3D screening mammo w/cad, [facility]. Tissue Density: There are scattered areas of fibroglandular density. Findings: Analyzed By CAD. Chronic bilateral nodularity. 2 microclips right breast from prior biopsies. There is no suspicious group of microcalcifications or new suspicious mass in either breast. Overall Assessment: Benign, BI-RAD 2 Management: Screening Mammogram of both breasts in 1 year. . Patient should continue monthly self-breast exams. A clinical breast exam by your physician is recommended on an annual basis. This exam should not preclude additional follow-up of suspicious palpable abnormalities. Note on Lorene scores and lifetime risk: 1. A Lorene score greater than 3% is considered moderate risk. If this is the case, consider specialist referral to assess eligibility for a risk reducing agent. 2. If overall lifetime risk for the development of breast cancer is 20% or higher, the patient may qualify for future screening with alternating mammogram and breast MRI. Electronically signed and approved by: Kae Day M.D. Radiologist
== END | disposition home or self-care (01) ==
LOC: RADMAMWWP 14:17
PROVIDERS: ATTEND Family Medicine
DX: Z12.31 Encounter for screening mammogram for malignant neoplasm of breast (principal); M85.89 Other specified disorders of bone density and structure, multiple sites; Z78.0 Asymptomatic menopausal state
CPT/HCPCS: 77063; 77067; 77080

== ENCOUNTER → 2024-06-04 | Outpatient (CLI) | payer BC ==
[2024-06-05 01:40] LABS: Basophils # (A) 0.06 X 10*3/uL (0.00-0.10); Basophils % (A) 0.6 %; Eosinophils # (A) 0.01 X 10*3/uL (0.04-0.35); Eosinophils % (A) 0.1 %; HGB 15.2 g/dL (12.0-15.0); Lymphocytes # (A) 1.45 X 10*3/uL (0.90-5.00); Lymphocytes % (A) 13.4 %; MCH 30.5 pg (27.0-32.0); MCHC 33.8 g/dL (32.0-37.0); MCV 90.4 FL (80.0-97.0); Mean Platelet Volume 10.8 FL (9.5-12.2); Monocytes # (A) 0.51 X 10*3/uL (0.20-1.00); Monocytes % (A) 4.7 %; NRBC Per 100 WBC 0 X 10*3/uL (0.00-0.01); Neutrophils # (A) 8.67 X 10*3/uL (1.80-7.70); Neutrophils % (A) 80.1 %; Platelet Count 393 X 10*3/uL (140-440); RBC 4.98 X 10*6/uL (4.10-5.20); RDW 12.7 % (11.5-14.5); WBC 10.82 X 10*3/uL (4.50-10.00)
[2024-06-05 01:41] LABS: ALT 16 U/L (8-44); AST 25 U/L (13-35); Albumin 4.5 g/dL (3.8-4.9); Albumin/Globulin Ratio 1.32 Ratio (1.60-3.17); Alkaline Phosphatase 83 U/L (41-126); BUN/Creat Ratio 26.33 Ratio (12.00-20.00); Blood Urea Nitrogen 15.8 mg/dL (9.0-27.0); Carbon Dioxide 28.7 mmol/L (21.6-31.8); Chloride 94 mmol/L (96-109); Globulin 3.4 g/dL (1.6-3.3); Glucose 116 mg/dL (70-110); Potassium 3.3 mmol/L (3.5-5.5); Sodium 139 mmol/L (135-145); Total Bilirubin 0.3 mg/dL (0.3-1.2); Total Protein 7.9 g/dL (6.2-8.2)
[2024-06-05 02:28] LABS: Erythrocyte Sedimentation Rate 48 mm/Hr (0-30)
== END | disposition home or self-care (01) ==
LOC: LABWHC1 15:23
PROVIDERS: ATTEND Internal Medicine Gastroenterology
DX: K57.30 Diverticulosis of large intestine without perforation or abscess without bleeding (principal)
CPT/HCPCS: 36415; 80053; 85025; 85652; 86140

== ENCOUNTER 2024-06-13 05:59 | Day surgery (SDC) | payer BC ==
[2024-06-13] MEDS: IV FLUID CONTINUATION 1,000 ML IV ONE ×2 (06:16→06:59)
[2024-06-13] MEDS: LACTATED RINGERS 1,000 ML IV SCH (06:37)
[2024-06-13 06:44] LABS: Glucose,Whole Blood 100 mg/dL (70-110)
[2024-06-13 06:45] VITALS: RESP 16; TEMP 97
[2024-06-13] MEDS ORDERED: LIDOCAINE 1% INJ 10MG/ML (20 ML MDV) ONE (07:00)
[2024-06-13] MEDS ORDERED: PROPOFOL 10 MG/ML 20 ML VIAL IV ONE (07:00)
--- NOTE | 2024-06-13 07:23 | P.PCN ---
Date of Procedure: 06/13/24 Procedure(s) Performed: BRIEF HISTORY: Patient is a 68-year-old pleasant white female scheduled for an elective colonoscopy as a part of evaluation of rectal bleeding and diarrhea for the last 4 months duration. She was diagnosed with diverticular related colitis involving the sigmoid colon about 3 years ago. Since then has been maintained on balsalazide 3 tablets 3 times daily. For the last 4 months been having a flareup with 5-6 bowel movements daily with blood and mucus in the stool. She is not scheduled for a colonoscopy to evaluate further PROCEDURE PERFORMED: Colonoscopy with snare polypectomy and biopsy. PREOPERATIVE DIAGNOSIS: Rectal bleeding/diarrhea/history of double tubular related sigmoid colitis IV sedation per Anesthesia. PROCEDURE: After informed consent was obtained, the patient, was brought into the endoscopy unit. IV sedation was administered by Anesthesia under continuous monitoring. Digital rectal examination was normal. Initially the Olympus CF-160 flexible video colonoscope was then inserted in the rectum, gradually advanced into the cecum without any difficulty. Careful examination was performed as the scope was gradually being withdrawn. Ileocecal valve and the appendiceal orifice were visualized and appeared normal. Prep was excellent. Mucosa of the cecum millimeter sessile polyp was removed by cold snare polypectomy. Mucosa of the, ascending colon, transverse colon, descending colon normal. The distal sigmoid colon there was segmental colitis with mucosal erythema and friability extending from 20 to 33 cm from the anal verge and multiple biopsies were done from this area. There was some diverticulosis noted in the vicinity. The rectum appeared normal. In the rectum there was a 5 mm polyp that was removed by cold snare polypectomy. Rest of the, sigmoid colon, and rectum appeared normal. Retroflexion was performed in the rectum and no lesions were seen. The patient tolerated the procedure well. IMPRESSION: Segmental colitis involving the distal sigmoid colon extending from 20 to 33 cm from the anal verge with mucosal erythema and friability status post multiple biopsies to rule out inflammatory bowel disease Scattered, diverticulosis 5 mm cecal polyp status post cold snare polypectomy 5 mm rectal polyp status post cold snare polypectomy RECOMMENDATIONS: Findings of this examination were discussed with the patient as well as her family. She was advised to follow-up with the biopsy results. She will be seen in the office in 2 weeks..
[2024-06-13 07:42] VITALS: BP 139/80; PULSE 78
== END 2024-06-13 08:15 | disposition home or self-care (01) ==
LOC: ORWHC2ENDO 05:59
PROVIDERS: ATTEND Internal Medicine Gastroenterology
DX: D12.0 Benign neoplasm of cecum (principal); K52.9 Noninfective gastroenteritis and colitis, unspecified; K62.1 Rectal polyp; K51.90 Ulcerative colitis, unspecified, without complications; I10 Essential (primary) hypertension; K21.9 Gastro-esophageal reflux disease without esophagitis; Z79.899 Other long term (current) drug therapy; Z90.710 Acquired absence of both cervix and uterus; Z98.890 Other specified postprocedural states
CPT/HCPCS: 88305; 45380; 45385; J2003; J2704

== ENCOUNTER → 2024-09-29 | Outpatient (CLI) | payer BC ==
[2024-09-29 18:50] LABS: Basophils # (A) 0.07 X 10*3/uL (0.00-0.10); Basophils % (A) 0.9 %; Eosinophils # (A) 0.33 X 10*3/uL (0.04-0.35); Eosinophils % (A) 4.2 %; HCT 45.2 % (37.2-46.3); HGB 15.1 g/dL (12.0-15.0); Lymphocytes # (A) 2.63 X 10*3/uL (0.90-5.00); Lymphocytes % (A) 33.6 %; MCH 30.4 pg (27.0-32.0); MCHC 33.4 g/dL (32.0-37.0); MCV 91.1 FL (80.0-97.0); Mean Platelet Volume 9.9 FL (9.5-12.2); Monocytes # (A) 0.69 X 10*3/uL (0.20-1.00); Monocytes % (A) 8.8 %; NRBC Per 100 WBC 0 X 10*3/uL (0.00-0.01); Neutrophils # (A) 4.06 X 10*3/uL (1.80-7.70); Platelet Count 369 X 10*3/uL (140-440); RBC 4.96 X 10*6/uL (4.10-5.20); RDW 12.3 % (11.5-14.5); WBC 7.82 X 10*3/uL (4.50-10.00)
[2024-09-29 19:16] LABS: ALT 17 U/L (8-44); AST 28 U/L (13-35); Albumin 4.3 g/dL (3.8-4.9); Albumin/Globulin Ratio 1.59 Ratio (1.60-3.17); Alkaline Phosphatase 66 U/L (41-126); Blood Urea Nitrogen 20.8 mg/dL (9.0-27.0); Calcium 9.9 mg/dL (8.7-10.3); Carbon Dioxide 27.4 mmol/L (21.6-31.8); Chloride 97 mmol/L (96-109); Globulin 2.7 g/dL (1.6-3.3); Glucose 96 mg/dL (70-110); Potassium 3.8 mmol/L (3.5-5.5); Sodium 138 mmol/L (135-145); Total Bilirubin <0.2 mg/dL (0.3-1.2)
[2024-09-29 19:42] LABS: Erythrocyte Sedimentation Rate 23 mm/Hr (0-30)
== END | disposition home or self-care (01) ==
LOC: LABWHC1 16:07
PROVIDERS: ATTEND Internal Medicine Gastroenterology
DX: K52.9 Noninfective gastroenteritis and colitis, unspecified (principal)
CPT/HCPCS: 36415; 80053; 83993; 85025; 85652; 86140